=== PATIENT | male | born 1980 | race Caucasian/White ===

== ENCOUNTER 2020-04-12 14:35 | Emergency (ER) | payer OTHER, BC ==
[2020-04-12] MEDS ORDERED: Lidocaine 2% with EPINEPHrine 1:200,000 20 ML SDV INJECT ONE (14:41)
[2020-04-12] MEDS ORDERED: Diphtheria,Pertussis(Acell),Tetanus Vaccine 0.5 ML SDV IM ONE (14:55)
[2020-04-12] MEDS ORDERED: Bacitracin Oint 1 GM U/D Packet TOP ONE (14:55)
--- NOTE | 2020-04-12 15:01 | EDM.PDOC ---
ED HPI GENERAL MEDICAL PROBLEM - General Chief Complaint: Laceration Stated Complaint: LACERATION Time Seen by Provider: 04/12/20 14:45 Source of Information: Reports: Patient History Limitations: Reports: No Limitations - History of Present Illness INITIAL COMMENTS - FREE TEXT/NARRATIVE: This 39 yo male patient reports to the ED with a laceration to the left forearm. The patient reports he was at work cutting a zip tie with a box bender. Onset: Today Duration: Minutes: Severity: Mild Improves with: Reports: None Worsens with: Reports: None Context: Reports: Other Associated Symptoms: Reports: No Other Symptoms - Related Data Allergies Allergy/AdvReac Type Severity Reaction Status Date / Time amoxicillin [From Augmentin] Allergy Vomiting Verified 04/12/20 14:40 clavulanic acid Allergy Vomiting Verified 04/12/20 14:40 [From Augmentin] Home Meds: Home Meds . [No Known Home Meds] 04/12/20 [History] Past Medical History HEENT History: Reports: None Cardiovascular History: Reports: None Respiratory History: Reports: None Gastrointestinal History: Reports: None Genitourinary History: Reports: None Musculoskeletal History: Reports: Other (See Below) Other Musculoskeletal History: fracture left thumb, right ankle, right elbow, Neurological History: Reports: None Psychiatric History: Reports: None Endocrine/Metabolic History: Reports: None Hematologic History: Reports: None Immunologic History: Reports: None Oncologic (Cancer) History: Reports: None Dermatologic History: Reports: None - Infectious Disease History Infectious Disease History: Reports: None - Past Surgical History Head Surgeries/Procedures: Reports: None Musculoskeletal Surgical History: Reports: Other (See Below) Other Musculoskeletal Surgeries/Procedures:: L4-L5, meniscus right knee, flica right knee, Social & Family History - Family History Family Medical History: Noncontributory - Tobacco Use Smoking Status *Q: Current Every Day Smoker Years of Tobacco use: 20 Packs/Tins Daily: 1 Used Tobacco, but Quit: No Second Hand Smoke Exposure: No - Recreational Drug Use Recreational Drug Use: No ED ROS GENERAL - Review of Systems Review Of Systems: Comprehensive ROS is negative, except as noted in HPI. ED EXAM, SKIN/RASH Exam: See Below Exam Limited By: No Limitations General Appearance: Alert, WD/WN, No Apparent Distress Eye Exam: Bilateral Eye: EOMI, Normal Inspection, PERRL Ears: Normal External Exam, Normal Canal, Hearing Grossly Normal, Normal TMs Nose: Normal Inspection, Normal Mucosa, No Blood Throat/Mouth: Normal Inspection, Normal Lips, Normal Teeth, Normal Gums, Normal Oropharynx, Normal Voice, No Airway Compromise Head: Atraumatic, Normocephalic Neck: Normal Inspection, Supple, Non-Tender, Full Range of Motion Respiratory/Chest: No Respiratory Distress, Lungs Clear, Normal Breath Sounds, No Accessory Muscle Use, Chest Non-Tender Cardiovascular: Normal Peripheral Pulses, Regular Rate, Rhythm, No Edema, No Gallop, No JVD, No Murmur, No Rub GI/Abdominal: Normal Bowel Sounds, Soft, Non-Tender, No Organomegaly, No Distention, No Abnormal Bruit, No Mass (Male) Exam: Deferred Rectal (Males) Exam: Deferred Back Exam: Normal Inspection, Full Range of Motion, NT Extremities: Arm Pain (left forearm laceratoin (1 cm)) Neurological: Alert, Oriented, CN II-XII Intact, Normal Cognition, Normal Gait, Normal Reflexes, No Motor/Sensory Deficits Psychiatric: Normal Affect, Normal Mood Skin: Intact Location, Skin: Upper Extremity, Left Characteristics: Linear Lymphatic: No Adenopathy ED SKIN PROCEDURES - Laceration/Wound Repair Left Lower Arm Appearance: Subcutaneous Anesthetic Type: Local Local Anesthesia - Lidocaine (Xylocaine): 2% with EPI Local Anesthetic Volume: 2cc Skin Prep: Chlorhexidine (Hibiciens), Saline Exploration/Debridement/Repair: Wound Explored, No Foreign Material Found Closed with: Sutures Lac/Wound length In cm: 1 Suture Size: 4-0 # of Sutures: 3 Drain Placement: No Sterile Dressing Applied: Nurse Tetanus Status Addressed: Yes Complications: No Course - Vital Signs Last Recorded V/S: Last Vital Signs Temp 36.3 C 04/12/20 14:41 Pulse 120 H 04/12/20 14:41 Resp 16 04/12/20 14:41 BP 152/92 H 04/12/20 14:41 Pulse Ox 98 04/12/20 14:41 - Orders/Labs/Meds Orders: Active Orders 24 hr Category Date Time Status Vaccines to be Administered [RC] PER UNIT ROUTINE Care 04/12/20 14:55 Ordered Meds: Medications Discontinued Medications Generic Name Dose Route Start Last Admin Trade Name Freq PRN Reason Stop Dose Admin Bacitracin 1 dose 04/12/20 14:55 04/12/20 15:01 Bacitracin Oint 1 Gm TOP 04/12/20 14:56 1 dose ONETIME ONE Administration Diphtheria/Tetanus/Acell Pertussis 0.5 ml 04/12/20 14:55 04/12/20 15:00 Adacel IM 04/12/20 14:56 0.5 ml .ONCE ONE Administration Lidocaine/Epinephrine 20 ml 04/12/20 14:41 04/12/20 14:47 Xylocaine-Mpf 2%-Epi 1:200,000 INJECT 04/12/20 14:42 20 ml ONETIME ONE Administration Departure - Departure Time of Disposition: 15:01 Disposition: Home, Self-Care 01 Condition: Fair Clinical Impression: Laceration of left forearm Qualifiers: Encounter type: initial encounter Qualified Code(s): S51.812A - Laceration without foreign body of left forearm, initial encounter - Discharge Information *PRESCRIPTION DRUG MONITORING PROGRAM REVIEWED*: Not Applicable *COPY OF PRESCRIPTION DRUG MONITORING REPORT IN PATIENT AIMEE: Not Applicable Instructions: Laceration Care, Adult, [id number]-co-[id number] Forms: ED Department Discharge Care Plan Goals: The patient was advised of the examination results during the visit. The laceration margins were well approximated during the visit. The patient should keep the area clean and dry over the next 24 hours. The patient should have the sutures removed in 10-14 days. If the patient has any additional symptoms or concerns, the patient should either return to the emergency department or follow-up with his primary care facility. Sepsis Event Note (ED) - Evaluation Sepsis Screening Result: No Definite Risk - Focused Exam Vital Signs: Vital Signs Temp Pulse Resp BP Pulse Ox 04/12/20 14:41 36.3 C 120 H 16 152/92 H 98 - My Orders Last 24 Hours: My Active Orders 04/12/20 14:55 Vaccines to be Administered [RC] PER UNIT ROUTINE - Assessment/Plan Last 24 Hours: My Active Orders 04/12/20 14:55 Vaccines to be Administered [RC] PER UNIT ROUTINE
== END 2020-04-12 15:04 | disposition home or self-care (01) ==
LOC: DL.ED 14:35
DX: S51.812A Laceration without foreign body of left forearm, initial encounter (principal); F17.210 Nicotine dependence, cigarettes, uncomplicated; Z88.0 Allergy status to penicillin; Z88.1 Allergy status to other antibiotic agents; Z23 Encounter for immunization; W26.8XXA Contact with other sharp object(s), not elsewhere classified, initial encounter; Y92.89 Other specified places as the place of occurrence of the external cause; Y99.0 Civilian activity done for income or pay
CPT/HCPCS: 12001; 90471; 90715; 99282-25

== ENCOUNTER 2023-12-20 05:40 | Day surgery (SDC) | payer BC, OTHER ==
[2023-12-20] MEDS: Dextrose 5%-0.45% NaCl 1,000 ML IV SCH (06:03)
[2023-12-20] MEDS ORDERED: fentaNYL 100 MCG/2 ML SDV ONE (06:16)
[2023-12-20] MEDS ORDERED: Midazolam 1 MG/ML 2 ML SDV ONE (06:16)
[2023-12-20] MEDS: fentaNYL 100 MCG/2 ML SDV IV ONE ×5 (07:00→07:12)
[2023-12-20] MEDS: Midazolam 1 MG/ML 2 ML SDV IV ONE ×6 (07:01→07:08)
== END 2023-12-20 08:32 | disposition home or self-care (01) ==
LOC: DL.ENDO 05:40
PROVIDERS: ATTEND Internal Medicine Gastroenterology
DX: Z12.11 Encounter for screening for malignant neoplasm of colon (principal); E78.5 Hyperlipidemia, unspecified; E66.9 Obesity, unspecified; Z68.31 Body mass index [BMI] 31.0-31.9, adult; F17.210 Nicotine dependence, cigarettes, uncomplicated
CPT/HCPCS: J2250; J3010; J7042